=== PATIENT | male | born 1960 | race Caucasian/White ===

== ENCOUNTER 2017-05-09 20:51 | Emergency (ER) | payer OTHER ==
[2017-05-09 21:14] VITALS: BP 138/93
[2017-05-09] MEDS ORDERED: cefTRIAXone 2 GM in Sodium Chloride 0.9% 50 ML IV ONE (21:34)
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
== END 2017-05-09 22:51 | disposition home or self-care (01) ==
LOC: JP.ED 20:51
DX: L03.114 Cellulitis of left upper limb (principal); I89.1 Lymphangitis
CPT/HCPCS: 96365; 99283; J0696; J7050

== ENCOUNTER 2017-05-10 20:27 | Emergency (ER) | payer OTHER ==
[2017-05-10] MEDS ORDERED: cefTRIAXone 2 GM in Sodium Chloride 0.9% 50 ML IV ONE (20:38)
[2017-05-10 20:42] VITALS: BP 128/88
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
== END 2017-05-10 22:03 | disposition home or self-care (01) ==
LOC: JP.ED 20:27
DX: L03.114 Cellulitis of left upper limb (principal)
CPT/HCPCS: 96365; 99283; J0696; J7050

== ENCOUNTER 2020-09-11 06:32 | Day surgery (SDC) | payer OTHER ==
[2020-09-11] MEDS ORDERED: Sodium Chloride 0.9% 1,000 ML IV SCH (07:00)
[2020-09-11] MEDS ORDERED: Midazolam 1 MG/ML 2 ML SDV ONE (07:23)
[2020-09-11] MEDS ORDERED: Propofol 200 MG/20 ML SDV ONE (07:23)
[2020-09-11] MEDS ORDERED: fentaNYL 100 MCG/2 ML SDV ONE (07:23)
[2020-09-11 08:45] VITALS: BP 130/86; PULSE 54
--- NOTE | 2020-09-11 10:01 | OR ---
DATE OF PROCEDURE: 09/11/2020 SURGEON: Red Chicas MD PROCEDURE: Esophagogastroduodenoscopy. FINDINGS: Inflammation of GE junction concerning for reflux disease (biopsied in all four quadrants). COMPLICATIONS: None. LIFE ENRICHMENT SPECIALIST: None. ANESTHESIA: MAC. PREOPERATIVE DIAGNOSIS: Dysphagia. POSTOPERATIVE DIAGNOSIS: Dysphagia. RISKS: Risks, benefits, alternatives, and limitations including, but not limited to infection, bleeding, and perforation along with false positives and false negatives were explained to the patient, who wished to proceed. PROCEDURE IN DETAIL: The patient was placed in left lateral decubitus position. No evidence of duodenitis or ulceration. No evidence of old or new blood. No masses. No polyps. Within the stomach itself, there was no evidence of gastritis. No ulcers. On retroflexion, no abnormalities were noted. At the GE junction, there was inflammation concerning with reflux disease. There were two salmon-colored tongues protruding less than 1 cm from the GE junction. These were biopsied along with all 4 quadrants. The air was removed from the stomach. The remaining esophagus was inspected without abnormality. The patient tolerated the procedure well. Red Chicas MD /[id number]
== END 2020-09-11 08:59 | disposition home or self-care (01) ==
LOC: JP.SDS 06:32
PROVIDERS: ATTEND Surgery
DX: K31.89 Other diseases of stomach and duodenum (principal); K29.70 Gastritis, unspecified, without bleeding
CPT/HCPCS: J2250; J2704; J3010; J7030

== ENCOUNTER 2024-04-15 07:00 | Day surgery (SDC) | payer BC, OTHER ==
[2024-04-15] MEDS ORDERED: Midazolam 1 MG/ML 2 ML SDV ONE (07:06)
[2024-04-15] MEDS ORDERED: fentaNYL 50 MCG/ML SDV ONE (07:06)
[2024-04-15] MEDS ORDERED: Propofol 200 MG/20 ML SDV ONE ×2 (07:06→08:58)
[2024-04-15] MEDS: Lactated Ringers 1,000 ML IV SCH (07:43)
[2024-04-15 10:20] VITALS: BP 146/89; PULSE 60
== END 2024-04-15 10:33 | disposition home or self-care (01) ==
LOC: JP.SDS 07:00
PROVIDERS: ATTEND Family Medicine
DX: Z12.11 Encounter for screening for malignant neoplasm of colon (principal); D12.4 Benign neoplasm of descending colon
CPT/HCPCS: 00811; 45380; 45385; J2250; J2704; J3010; J7120; 88305